=== PATIENT | female | born 2000 | race African-American/Black ===

== ENCOUNTER 2022-05-06 23:35 | Emergency (ER) | payer SELFPAY ==
[2022-05-06 23:45] VITALS: BP 108/89; PULSE 61; RESP 16; TEMP 36.2; O2SAT 100
--- NOTE | 2022-05-07 00:11 | ED.GENADUL_ITS ---
Discharge Plan Disposition Patient Disposition: HOME Condition: Improving Discharge Details Clinical Impression: Vomiting, Dehydration ED Provider: Jomar Grande Home Meds and New Rx's Prescriptions: No Action No Known Home Meds Discharge Instructions Instructions: Dehydration (ED) Additional Instructions: Small, frequent sips of fluids to maintain hydration. Your test was negative tonight. Home to rest this evening. Your potassium was slightly low and you would benefit from increased dietary potassium through foods such as leafy greens, strawberries or bananas, tree nuts such as cashews or almonds. Medical Decision Making 22-year-old female presents from home with hours of lightheaded, weakness, nausea and vomiting. May have began after smoking some marijuana. She is afebrile with normal vital signs, she is quite dehydrated in appearance. IV access was established, screening labs obtained and patient given fluids. Patient does have mild hypokalemia and hypomagnesemia which were supplemented in the emergency department. Following fluids and an antiemetic she is significantly improved, request discharge to home. HPI General Mode of arrival: ambulatory . Date/Time Provider Initiated Documentation: 05/07/22 00:01 . Limitations to Documentation: no limitations . Information obtained by: patient . History of Present Illness 22 year old F presents to the emergency department with the chief complaint of Abdominal pain, vomiting, decreased p.o. intake, described as moderate, Quality is described as dull, and is localized to the abdomen. Patient reports no radiation. Patient started experiencing this hour(s) and it has been intermittent. No relieving factors improve symptom(s), No exacerbating factors reported . Patient notes shortness of breath and weakness; denies syncope. Patient did receive the following treatments prior to arrival, none Related Data Home Medications Medication Instructions Recorded Confirmed Unknown [No Known Home Meds] 05/06/22 05/06/22 Allergies Allergy/AdvReac Type Severity Reaction Status Date / Time No Known Allergies Allergy Unverified 05/06/22 23:53 General Stated Complaint: Nausea/Vomit/Diar HIMANSHU: 3 Review of Systems Narrative: Cough, nausea, see HPI. 8 systems reviewed and otherwise negative. Just finished her period. PFSH All Active Problems (Updated 05/07/22 @ 02:11 by Jomar Grande MD) Vomiting (Acute) Dehydration (Acute) Social History Smoking/Tobacco Use Status: Never Smoking risk assessment performed?: Yes Alcohol Intake: never Drug use: Occasionally Substance use type: marijuana Details: Last use today, 2p...smoked. Do you feel safe at home: Yes Do you feel safe in your relationship?: Yes Exam Narrative Exam Narrative: GEN: awake, alert, oriented 3. Pleasant, well groomed, interactive. HEAD: Normocephalic, atraumatic ENT: Mucous membranes dry with cracked lips, oropharynx unremarkable, External ear exam unremarkable EYES: PERRL, EOMI NECK: Full ROM, no ERNESTINE, no menigismus CHEST/RESP: Nontender, clear to auscultation bilateral, no wheeze/rhonchi/rales CARDIOVASCULAR: RRR, no murmur, rub amy. 2+ Rad pulse bilateral ABDOMEN: Soft, mild diffuse tenderness without rebound or guarding, no mass. +Bowel sounds EXT: Full ROM, no edema, no rash Neuro: Grossly normal neurologic exam, conversant, interactive. Psych: Speech fluent, thoughts congruent, affect normal Course Vital Signs Vital signs: Vital Signs Temperature 36.2 C L 05/06/22 23:45 Pulse 61 05/06/22 23:45 Respiratory Rate 16 05/06/22 23:45 Blood Pressure 108/89 05/06/22 23:45 Pulse Oximetry 100 05/06/22 23:45 Temperature 36.2 C L 05/06/22 23:45 Temperature Source Temporal Artery Scan 05/06/22 23:45 Pulse 61 05/06/22 23:45 Respiratory Rate 16 05/06/22 23:45 Respiratory Effort Non-Labored 05/06/22 23:48 Blood Pressure 108/89 05/06/22 23:45 Blood Pressure Position Supine 05/06/22 23:45 Pulse Oximetry 100 05/06/22 23:45 Oxygen Delivery Method Room Air 05/06/22 23:45 Oxygen Flow Rate 0 05/06/22 23:45 Pain Level 0 05/06/22 23:45
[2022-05-07 00:34] LABS: Abs Immature Grans 0.04 10^3/uL (0.0-0.06); Absolute Lymphocyte Count 1.12 10^3/uL (1.2-3.4); Absolute Monocyte Count 0.45 10^3/uL (0.1-0.8); Basophils % 0.2; Eosinophils % 0.2; HCT 44.8 % (36.0-46.0); HGB 15.5 g/dL (11.2-15.7); Immature Grans % 0.3; Lymphocytes % 8.9; MCH 32.6 pg (27.0-33.0); MCHC 34.6 % (32.0-36.0); MCV 94 fL (80-95); MPV 9.9 fL (8.0-11.0); Monocytes % 3.6; Neutrophils % 86.8; Platelet Count 268 10^3/uL (130-400); RBC 4.75 10^6/uL (3.93-5.22); RDW-SD 42.1 fL; WBC 12.57 10^3/uL (4.4-10.8)
[2022-05-07 00:35] LABS: Absolute Basophil Count 0.03 10^3/uL (0.0-0.2); Absolute Eosinophil Count 0.03 10^3/uL (0.0-0.7); Absolute Neutrophil Count 10.91 10^3/uL (1.2-6.7)
[2022-05-07] MEDS: Ondansetron 4 MG/2 ML VIAL IVP (00:36)
[2022-05-07] MEDS: LORazepam 2 MG/ML VIAL 0.5 MG IVP (00:36)
[2022-05-07] MEDS: Normal Saline 1,000 ML 1000 ML IV ×2 (00:36→01:17)
[2022-05-07 00:54] LABS: ALT 24 U/L (14-59); AST 18 U/L (15-37); Albumin 4.9 g/dL (3.4-5.0); Alkaline Phosphatase 62 U/L (46-116); Anion Gap 13.4 mmol/L (3-11); BUN 16 mg/dL (7-18); Bilirubin, Total 1.5 mg/dL (0.2-1.0); CO2 22.6 mmol/L (21.0-32.0); CREATININE 0.8 mg/dL (0.55-1.02); Calcium 9.8 mg/dL (8.5-10.1); Chloride 101 mmol/L (98-107); Glucose 121 mg/dL (74-106); Lipase 69 U/L (73-393); Magnesium 1.7 mg/dL (1.8-2.4); Potassium 3.3 mmol/L (3.5-5.1); Sodium 137 mmol/L (136-145); Total Protein 8.7 g/dL (6.4-8.2)
[2022-05-07 00:58] LABS: HCG Qual (Serum) Negative
[2022-05-07] MEDS: MAGNESIUM SULFATE 1 GM/100 ML BAG IVPB (01:17)
[2022-05-07] MEDS: POTASSIUM CHLORIDE 10 MEQ/100 ML BAG 100 MEQ IVPB (01:17)
== END 2022-05-07 03:07 | disposition home or self-care (01) ==
PROVIDERS: Emergency Provider Emergency Medicine
DX: R11.2 Nausea with vomiting, unspecified (principal); E86.0 Dehydration; E87.6 Hypokalemia; E83.42 Hypomagnesemia
CPT/HCPCS: 36416; 80053; 82962; 83690; 96360; 96361; 96365; 96368; 96375; 99284; 83735; 84703; 85025; J2060; J2405; J3475; J3480